=== PATIENT | female | born 2000 | race Two or more races ===

== ENCOUNTER → 2021-12-16 | Outpatient (CLI) | payer SELFPAY ==
--- NOTE | 2021-12-16 09:59 | RAD ---
EXAM: Ultrasound US OB >14 WEEKS 12/16/2021 8:25 AM INDICATION: Second trimester anatomy scan. COMPARISON: None FINDINGS: There is a single living intrauterine gestation in cephalic position. heart rate is bpm. Placen ta is anterior. Cervix measures 4.6 cm. The following anatomy as visualized: brain, cerebellum, cisterna magna, lateral ventricle s, bladder, kidneys, stomach, four-chamber heart, cord insertion, three-vessel cord, 4 extremit ies. The cervical, thoracic, and coronal spine are grossly normal in the coronal plane but not well v isualized in the axial plane and cannot be evaluated in the sagittal plane due to position of the fet us. The diaphragm was not clearly demonstrated. biometry: Biparietal diameter: 4.49 cm, 19 weeks 4 days Head circumference: 17.16 cm, 19 weeks 5 days Abdominal circumference: 14.21 cm, 19 weeks 4 days Femur length: 3.03 cm, 19 weeks 3 days HC/AC ratio: 1.21 Estimated gestational age by ultrasound: 19 weeks 4 days. Estimated weight: 296 g. ROB: 05/08/20 22 TITUS: 11 cm IMPRESSION: 1. Single living intrauterine in cephalic position. Gestational age by ultrasound 19 weeks 4 days, estimated weight 296 g. 2. No anatomic abnormalities identified. 3. Limited evaluation of the spine, only in the coronal plane due to positioning of the fetus. Consid er follow-up ultrasound to fully evaluate the spine in sagittal and axial planes. 4. The diaphragm was not clearly demonstrated. This could also be reevaluated on follow-up ultrasound . Electronically signed by: Caitlin Rivera MD (12/16/2021 9:56 AM) [id number]
== END ==
LOC: US 08:09
PROVIDERS: ATTEND Registered Nurse
DX: Z34.92 Encounter for supervision of normal pregnancy, unspecified, second trimester (principal); Z3A.19 19 weeks gestation of pregnancy
CPT/HCPCS: 76805